=== PATIENT | male | born 1940 | race Caucasian/White ===

== ENCOUNTER 2020-08-16 23:34 | Inpatient (IN) | payer OTHER, SELFPAY ==
[~2020-08-16] VITALS: Ht 182.9 cm; Wt 118.8 kg
--- NOTE | 2020-08-16 23:40 | NUR ---
Patient to ER bed 5 to gown for evaluation. Side rails up.
--- NOTE | 2020-08-17 00:03 | NUR ---
Patient BIB by BLS/EMS. C/O medical clearance x today. Per reported patient found on the floor, a mattress on the floor, possible rolled over, (6 inches from ground level mattress ). A/O,X4, generalized weakness, bodyache, on fentanyl patch, Place patient on nurse monitoring.
--- NOTE | 2020-08-17 00:21 | NUR ---
X-ray at bedside.
--- NOTE | 2020-08-17 00:29 | NUR ---
ER at bedside examining patient.
--- NOTE | 2020-08-17 00:35 | NUR ---
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 Patient tolerated well.
[2020-08-17] MEDS ORDERED: BENA10TA73 PO (00:36)
--- NOTE | 2020-08-17 00:42 | NUR ---
spoke to daughter, Salena Moore, she can be reached at [phone] at any time.
[2020-08-17] MEDS ORDERED: BUDE10.26 INH (00:58)
[2020-08-17] MEDS ORDERED: SERT100T PO (00:58)
[2020-08-17] MEDS ORDERED: OXYC-133 PO ×2 (00:58)
[2020-08-17] MEDS ORDERED: POTA20TA83 PO (00:58)
[2020-08-17] MEDS ORDERED: SPIR25TA6 PO (00:58)
[2020-08-17] MEDS ORDERED: APIX5TAB PO (00:58)
[2020-08-17] MEDS ORDERED: FURO20TA4 PO (00:58)
[2020-08-17] MEDS ORDERED: POLY15DR31 EACH EYE (00:58)
[2020-08-17] MEDS ORDERED: PRO40 PO (00:58)
[2020-08-17] MEDS ORDERED: ACET325T PO (00:58)
[2020-08-17] MEDS ORDERED: FURO-150 PO (00:58)
[2020-08-17] MEDS ORDERED: POLY17PO4 PO (00:58)
[2020-08-17] MEDS ORDERED: LEVO100T9 PO (00:58)
[2020-08-17] MEDS ORDERED: ALBU8.5H8 INH (00:58)
[2020-08-17] MEDS ORDERED: LACT1CAP62 PO (00:58)
[2020-08-17] MEDS ORDERED: [UNRECOGNIZED DRUG - CODE] PO (00:58)
[2020-08-17] MEDS ORDERED: ROSU10TA2 PO (00:58)
[2020-08-17] MEDS ORDERED: HYD10 PO (00:58)
[2020-08-17] MEDS ORDERED: APIX5TAB4 PO (00:58)
[2020-08-17] MEDS ORDERED: FENT-71 TD (00:58)
[2020-08-17] MEDS ORDERED: ZINC220T4 PO (00:58)
[2020-08-17] MEDS ORDERED: CARB30DR4 OP (00:58)
[2020-08-17] MEDS ORDERED: FAMO20TA8 PO (00:58)
[2020-08-17] MEDS ORDERED: HYDR5TAB PO (00:58)
[2020-08-17] MEDS ORDERED: CHOL100024 PO (00:58)
[2020-08-17] MEDS ORDERED: DILT60TA3 PO (00:58)
[2020-08-17] MEDS ORDERED: TAMS0.4C96 PO (00:58)
[2020-08-17] MEDS ORDERED: ASCO500T20 PO (00:58)
--- NOTE | 2020-08-17 00:59 | NUR ---
Medication reconciliation completed with information provided by [facility]. Any prior medication reconciliation on file was reviewed and corrected.
[2020-08-17 01:10] LABS: BASOPHILS % (AUTO) 0.5 % (0.0-2.0); EOSINOPHILS # (AUTO) 0.1 K/uL (0.0-0.4); EOSINOPHILS % (AUTO) 0.7 % (0.0-4.0); HEMATOCRIT 37.2 % (36-54); HEMOGLOBIN 12.5 g/dL (14.0-18.0); LYMPHOCYTES # (AUTO) 2.7 K/uL (1.0-5.5); LYMPHOCYTES % (AUTO) 30.6 % (20.5-51.5); MEAN CORPUSCULAR HEMOGLOBIN 30 pg (27-31); MEAN CORPUSCULAR HGB CONC 34 % (32-36); MEAN CORPUSCULAR VOLUME 90 fL (79.0-98.0); MONOCYTES # (AUTO) 0.5 K/uL (0.0-1.0); MONOCYTES % (AUTO) 5.3 % (1.7-9.3); NEUTROPHILS # (AUTO) 5.5 K/uL (1.8-7.7); NEUTROPHILS % (AUTO) 62.9 % (40.0-70.0); PLATELET COUNT (AUTO) 154 K/uL (130-430); RED BLOOD CELL COUNT(AUTO) 4.15 MIL/uL (4.2-6.2); RED CELL DISTRIBUTION WIDTH 17.3 % (9.0-15.0); WHITE BLOOD COUNT (AUTO) 8.8 K/uL (4.8-10.8)
[2020-08-17 01:22] LABS: ANION GAP 12 (5-15); CALCIUM 7.9 mg/dL (8.4-11.0); CHLORIDE 94 mmol/L (98-107); GLUCOSE 116 mg/dL (70-99); POTASSIUM 3.9 mmol/L (3.5-5.1); SODIUM SERUM 128 mmol/L (136-145); UREA NITROGEN, BLOOD 39 mg/dL (8-21)
[2020-08-17 01:26] LABS: ALANINE AMINOTRANSFERASE 61 U/L (12-78); ASPARTATE AMINOTRANSFERASE 46 U/L (10-37); LIPASE 70 U/L (73-393); TOTAL BILIRUBIN 0.7 mg/dL (0.0-1.0)
[2020-08-17 01:29] LABS: INR 1.3 (0.80-1.20)
[2020-08-17] MEDS ORDERED: NACL 0.9% 1,000 ML IV ONE (03:45)
--- NOTE | 2020-08-17 04:35 | NUR ---
Swabbed Covid 19 and MRSA as protocol and sent to lab.
--- NOTE | 2020-08-17 05:15 | NUR ---
Patient will be admitted to care of Dr. Romero. Admitted to Tele unit. Will go to room 106A. Belongings list completed. Complete and up to date summary report printed. SBAR report to be given at bedside with opportunity for questions.
--- NOTE | 2020-08-17 05:25 | NUR ---
ADMIT NOTE Received pt from ER to the floor with a diagnosis of renal failure. Admission process initiated. patient oriented to pain management, safety and call light-teach back done.
--- NOTE | 2020-08-17 06:09 | NUR ---
Assessment, pictures Initial phys assessment done, wound pictures taken and applied dressing on open wound. Patient resting in comfortable position, call light w/ in reach and bed alarm/safety precautions in place.
[2020-08-17 06:18] VITALS: BP_SYST 99
--- NOTE | 2020-08-17 07:11 | NUR ---
CONSULT NEPHROLOGY RENAL FAILURE DR MENDOZA [phone] S/W BALTAZAR BAINS
[2020-08-17] MEDS ORDERED: ACETAMINOPHEN 325 MG TABLET PO PRN (07:30)
[2020-08-17] MEDS ORDERED: POLYETHYLENE GLYCOL 3350, 17 GM/ POWD.PACK PO PRN (07:30)
[2020-08-17] MEDS ORDERED: OXYCODONE/ACETAMINOPHEN *10*mg/325 mg TABLET PO PRN (07:30)
--- NOTE | 2020-08-17 07:30 | NUR ---
Opening Note Patient found in [facility], A/Ox3, unsure of date. NAD. Respirations even and unlabored. Peripheral IV to left wrist, saline locked. Bed in low and locked position, side rails up x3, call light within reach, bed alarm on.
[2020-08-17 07:59] VITALS: BP_SYST 103
--- NOTE | 2020-08-17 08:15 | NUR ---
Peripheral IV Removal Patient inadvertently removed PIV. Wrist covered with 2x2 and gauze.
[2020-08-17] MEDS: POTASSIUM CHLORIDE 20 MEQ TAB.PRT.SR PO SCH (08:17)
[2020-08-17] MEDS: SERTRALINE HCL 50 MG TABLET PO SCH (08:17)
[2020-08-17] MEDS: LEVOTHYROXINE SODIUM 0.1 MG TABLET PO SCH (08:17)
[2020-08-17] MEDS: TAMSULOSIN HCL 0.4 MG CAP PO SCH (08:18)
[2020-08-17] MEDS: FAMOTIDINE 20 MG TABLET PO SCH ×2 (08:18→20:38)
[2020-08-17] MEDS: DILTIAZEM HCL 60 MG TABLET PO SCH (08:19)
[2020-08-17] MEDS: PEG 400/HYPROMELLOSE/GLYCERIN 15 ML DROPS EACH EYE SCH ×4 (08:19→20:45)
[2020-08-17] MEDS: APIXABAN 2.5 MG TABLET PO SCH ×2 (08:20→20:41)
[2020-08-17] MEDS ORDERED: HYDROCORTISONE 10 MG TABLET (CORTEF) PO ONE (10:15)
--- NOTE | 2020-08-17 11:22 | NUR ---
Straight Cath for UA specimen Straight Catheter inserted for UA specimen. Urine is yellow/cloudy. Patient tolerated procedure well. UO: 150 ml
[2020-08-17 11:29] LABS: BILIRUBIN,URINE NEGATIVE (NEGATIVE); BLOOD, URINE 3+ (NEGATIVE); COLOR,URINE YELLOW (YELLOW); GLUCOSE,URINE NEGATIVE (NEGATIVE); KETONES,URINE NEGATIVE (NEGATIVE); LEUKOCYTE ESTERASE ,URINE 1+ (NEGATIVE); NITRITE, URINE NEGATIVE (NEGATIVE); PH,URINE 5.5 (5.0-8.0); PROTEIN URINE 2+ (NEGATIVE); UROBILINOGEN,URINE 0.2 (0.2-1.0)
--- NOTE | 2020-08-17 11:30 | NUR ---
Peripheral IV insertion Peripheral IV inserted to right AC, 20 g, saline locked. Covered with gauze.
[2020-08-17 11:32] LABS: CLARITY/URINE CLOUDY (CLEAR)
[2020-08-17 11:42] LABS: BACTERIA,URINE MANY /HPF (None Seen)
[2020-08-17 11:43] LABS: MUCUS,URINE 1+ /LPF (None Seen)
[2020-08-17 11:45] VITALS: BP_SYST 95
[2020-08-17] MEDS: LEVOFLOXACIN 500 MG/D5W 100 ML IV SCH (13:37)
--- NOTE | 2020-08-17 13:54 | NUR ---
CONSULT ID CALLED CONSULT WITH DR JAEL TAPIA AND ELIAS TYLER FAXED TO THE OFFICE
--- NOTE | 2020-08-17 14:14 | NUR ---
Nausea/Vomiting Patient actively vomiting, undigested food. MD Romero paged for antiemetic orders.
--- NOTE | 2020-08-17 14:15 | NUR ---
MD Romero Orders TORB from MD Romero for 4 mg Zofran IV push q6hr as needed for nausea/vomiting.
--- NOTE | 2020-08-17 15:22 | NUR ---
Wound Care Assessment Luis Armando RICHARDSRTylor at bedside assessing patient. Patient agitated and resistant to assessment. Patient redirected
--- NOTE | 2020-08-17 15:22 | NUR ---
WOUND EVALUATION: Wound Consult received from Dr. Romero. Thank you, Dr. Romero, for the consult. Patient received in a [employer] Bed with an Atmos-Air 9000 mattress, awake, alert, confused, agitated, using fowl words, resisting care. Patient is unable to turn in bed independently. Greg Score is a 14. Past Medical History: CHF, COPD, Atrial-Fibrillation, B-Cell Lymphoma, resection of Pituitary Adenoma, Gallbladder surgery a few months ago, recurrent UTIs. Recent Labs: WBC 8.8, RBC 4.15, hemoglobin 12.5, hematocrit 37.2, sodium 128, chloride 94, BUN 39, creatinine 5.80, glucose 116, calcium 7.9, AST 46, albumin 3.0, PT 13.0, INR 1.3, PTT 41.1. Microbiology: Blood culture results x2 in progress; MRSA screen results in progress; Urine culture results in progress. Intrinsic factors that delay wound healing: CHF, COPD, Atrial-Fibrillation, Hypoalbuminemia. Extrinsic factors that delay wound healing: Immobility. Wound Assessment: 1. Abdomen, Superior to Umbilical area: Chronic wound, present on admission. Site has 90% red discoloration, 10% white discoloration. No odor, no drainage. Dry, stable. Site measures 1.7 cm x 1.7 cm. Recommend: Cleanse site with mild soap and water. Pat dry. Apply Calmoseptine cream to involved area. Perform site care twice daily. 2. Right Lateral Abdominal Fold: Intertrigo, present on admission. Site has a horizontal linear area of erythema. No odor, scant serous drainage. Site measures 5.5 cm x 3.0 cm. Recommend: Cleanse site with mild soap and water. Pat dry. Apply Calmoseptine cream to involved area. Perform site care qid prn. 3. Left Posterior Heel: sDTI, present on admission. Site has a closed bulla with purple discoloration. Surrounding tissue has blanchable red erythema. No odor, no drainage. Site measures 4.3 cm x 4.2 cm. Recommend: Cover site with foam dressing for protection. Place foot in Heel Lift boot. Check Heel Lift boot during hourly rounds to ensure that heel is freely floating within boot. 4. Left Medial First Metatarsal Head: Chronic wound, present on admission. Site has 100% red colored tissue. No odor, no drainage. Dry, stable. Periwound intact. Wound measures 1.5 cm x 1.5 cm. Recommend: Cleanse wound with normal saline. Apply sure prep to periwound. Cover with foam dressing. Perform wound care daily, and as needed for dressing soiling or dislodgment. 5. Left Medial Hallux: Wound, present on admission. Site has 90% white tissue, 10% red tissue. No odor, scant serous drainage. Periwound intact. Wound measures 1.2 cm x 1.2 cm. Recommend: Cleanse wound with normal saline. Apply sure prep to periwound. Apply hydrogel to wound bed. Cover with foam dressing. Perform wound care daily, and as needed for dressing soiling or dislodgment. 6. Right Medial Hallux: Chronic wound, present on admission. Site has 100% red colored tissue. No odor, no drainage. Dry, stable. Periwound intact. Wound measures 1.0 cm x 1.0 cm. Recommend: Cleanse wound with normal saline. Apply sure prep to periwound. Cover with foam dressing. Perform wound care daily, and as needed for dressing soiling or dislodgment. 7. Left Anterior Knee: Abrasion, present on admission. Abrasion is dry with erythema. No odor, no drainage. Recommend: No dressing needed. Continue to monitor site every shift. 8. Left Upper Extremity: Multiple areas of ecchymosis, present on admission. 9. Right Upper Extremity: Multiple areas of ecchymosis, present on admission. Recommend: No dressings needed. Continue to monitor extremities every shift. Also recommend: Reposition patient every 2 hours with pillow support and off-load pressure areas with pillows for pressure re-distribution. Offload, elevate and float bilateral heels with pillows. Perform skin care and monitor skin integrity Q shift. Use Calmoseptine cream on buttocks and other moisture susceptible areas QID and as needed for soiling. Place patient on a low air-loss mattress. Addendum: 08/17/20 at 1712 by Luis Armando Monge RN Addendum: 10. Sacral/Buttocks/Gluteal Cleft areas: Blanchable red erythema with tiny white lesion with dark discolored center, present on admission. No odor, no drainage. Recommend: Cleanse site with mild soap and water. Apply Calmoseptine to site. Cover with Sacral foam dressing. Perform site care daily, and as needed for dressing soiling or dislodgment.
[2020-08-17 15:37] VITALS: BP_SYST 93
--- NOTE | 2020-08-17 17:15 | NUR ---
Wound Care Foam pad placed to left heel. Left heel placed in heel lift boot.
[2020-08-17] MEDS: OXYCODONE/ACETAMINOPHEN *10*mg/325 mg TABLET PO PRN (17:36)
[2020-08-17] MEDS: ONDANSETRON HCL 4 MG/2 ML VIAL IM PRN (18:29)
--- NOTE | 2020-08-17 18:29 | NUR ---
Closing Note Patient in bed, reporting nausea, provided patient with 4 mg zofran IV push. Peripheral IV infusing at 60 ml/hr to right AC. Bed in low and locked position, side rails up x3, call light within reach, bed alarm on. Will endorse care to NOC RN.
--- NOTE | 2020-08-17 19:25 | NUR ---
Opening Note Received patient resting in bed, awake, AOx3, no distress and nonlabored breathing on room air and presently denies pain and reports no nausea. IVF infusing via IV to RAC. He is wearing gown refuses to be covered by sheets or blankets. Bed is locked in lowest position, side rails up 3x and bed alarm on. He was instructed on use of call light and verbalized understanding. Reviewed plan of care and updated board.
[2020-08-17 20:00] VITALS: BP_SYST 103
[2020-08-17] MEDS: ATORVASTATIN 20 MG TABLET PO SCH (20:38)
[2020-08-17] MEDS: HYDROCORTISONE 10 MG TABLET (CORTEF) PO SCH (20:39)
--- NOTE | 2020-08-17 20:50 | NUR ---
meds Due meds given. Patient took pills/tablets whole, he wanted the meds in his pudding cup and he ate the entire pudding.
--- NOTE | 2020-08-17 22:10 | NUR ---
awake, leads off Patient is awake and pulling off gown and leads. He was assisted with reposition and reports he didn't want pillow on side. He was educated on benefits/risks of reposition and he replied "I'm not going to get a bed sore". He eventually did agree to turn to right side and I placed pillow.
[2020-08-18 00:20] VITALS: BP_SYST 94
--- NOTE | 2020-08-18 00:22 | NUR ---
Rounds, V/S Patient resting w/eyes closed and upset that he was awakened. I explained that at the hospital we check V/S and provide patient care 24 hours. V/S taken and hypotensive 94/61, HR 68. He was repositioned and cooperated. Will continue to monitor.
--- NOTE | 2020-08-18 02:15 | NUR ---
Rounds, reposition Patient resting w/eyes closed, no distress. He was easily aroused and repositioned. IVF infusing well and patient tolerating. Safety precautions maintained.
[2020-08-18] MEDS: MENTHOL/ZINC OXIDE 113 GM OINT. TP PRN ×2 (04:29→20:19)
[2020-08-18 04:30] VITALS: BP_SYST 95
--- NOTE | 2020-08-18 04:40 | NUR ---
Wound care Wound care done; patient tolerated; details noted in [facility] assessment charting. At 0400 patient was informed of procedure to be done (wound care) and he agreed; He was offered pain medication and he refused.
--- NOTE | 2020-08-18 05:05 | NUR ---
Low air loss mattress [facility] nurses. Patient tolerated.
--- NOTE | 2020-08-18 05:18 | NUR ---
Paged Keyshawn Alexander s/w Safia
--- NOTE | 2020-08-18 05:19 | NUR ---
Critical Lab Gina OSBORN, received critical lab result from Sunita and forward message to me. Preliminary result is Positive BC G+ cocci clusters, awaiting call back from Dr. Alin De Jesus.
--- NOTE | 2020-08-18 05:37 | NUR ---
Dr. Alin De Jesus was informed of + BC results; provided orders and TORB new orders.
[2020-08-18] MEDS: PANTOPRAZOLE SODIUM 40 MG TAB PO SCH (06:45)
[2020-08-18] MEDS: LEVOTHYROXINE SODIUM 0.1 MG TABLET PO SCH (06:45)
--- NOTE | 2020-08-18 06:45 | NUR ---
Closing note Patient was given due medication and took tablets whole w/pudding. He is resting in comfortable position, no s/sx of distress and non labored breathing. Patient is resting on TARIQ mattress, IV to RAC is SL and safety precautions maintained. Needs met throughout shift, will endorse care to day shift nurse.
--- NOTE | 2020-08-18 07:25 | NUR ---
Nutrition Update Greg Scale 14 noted. Pt admitted for Renal failure Diet: Renal standard BMI: 35 kg/m2 RD to follow per nutrition care standards.
--- NOTE | 2020-08-18 07:30 | NUR ---
Opening Note Report received from NOC RN. Patient found in [facility], A/Ox3 but confused. Patient naked and has taken off his clothes, primary RN placed patient back in gown. Patient has no complaints at this time. Peripheral IV flushed, patent, saline locked. Denies chest pain/shortness of breath. Bed in low and locked position, side rails up x3, call light within reach, bed alarm on. Bathroom needs addressed.
[2020-08-18] MEDS: HYDROCORTISONE 10 MG TABLET (CORTEF) PO SCH ×2 (08:50→20:09)
[2020-08-18] MEDS: TAMSULOSIN HCL 0.4 MG CAP PO SCH (08:50)
[2020-08-18] MEDS: FAMOTIDINE 20 MG TABLET PO SCH ×2 (08:51→20:09)
[2020-08-18] MEDS: SERTRALINE HCL 50 MG TABLET PO SCH (08:51)
[2020-08-18] MEDS: POTASSIUM CHLORIDE 20 MEQ TAB.PRT.SR PO SCH (08:51)
[2020-08-18] MEDS: DILTIAZEM HCL 60 MG TABLET PO SCH (08:52)
[2020-08-18] MEDS: LINEZOLID 300 ML IV SCH ×2 (08:52→20:08)
[2020-08-18] MEDS: APIXABAN 2.5 MG TABLET PO SCH ×2 (08:53→20:10)
[2020-08-18] MEDS: PEG 400/HYPROMELLOSE/GLYCERIN 15 ML DROPS EACH EYE SCH ×4 (09:00→20:19)
--- NOTE | 2020-08-18 09:00 | NUR ---
Incontinent to Urine Patient incontinent to urine, patient's linens changed and patient cleaned.
[2020-08-18 11:04] LABS: BASOPHILS # (AUTO) 0.1 K/uL (0.0-0.2); EOSINOPHILS % (AUTO) 0.2 % (0.0-4.0); HEMATOCRIT 34.6 % (36-54); HEMOGLOBIN 11.6 g/dL (14.0-18.0); LYMPHOCYTES # (AUTO) 1.6 K/uL (1.0-5.5); LYMPHOCYTES % (AUTO) 29.4 % (20.5-51.5); MEAN CORPUSCULAR HEMOGLOBIN 30 pg (27-31); MEAN CORPUSCULAR HGB CONC 33 % (32-36); MEAN CORPUSCULAR VOLUME 90 fL (79.0-98.0); MONOCYTES # (AUTO) 0.2 K/uL (0.0-1.0); MONOCYTES % (AUTO) 3.7 % (1.7-9.3); NEUTROPHILS # (AUTO) 3.7 K/uL (1.8-7.7); NEUTROPHILS % (AUTO) 65.7 % (40.0-70.0); PLATELET COUNT (AUTO) 114 K/uL (130-430); RED BLOOD CELL COUNT(AUTO) 3.83 MIL/uL (4.2-6.2); RED CELL DISTRIBUTION WIDTH 17.1 % (9.0-15.0); WHITE BLOOD COUNT (AUTO) 5.6 K/uL (4.8-10.8)
[2020-08-18 11:14] LABS: ANION GAP 11 (5-15); CALCIUM 7.6 mg/dL (8.4-11.0); CHLORIDE 98 mmol/L (98-107); CREATININE 6.22 mg/dL (0.55-1.30); GLUCOSE 106 mg/dL (70-99); POTASSIUM 5.5 mmol/L (3.5-5.1); SODIUM SERUM 134 mmol/L (136-145); UREA NITROGEN, BLOOD 45 mg/dL (8-21)
[2020-08-18 11:19] LABS: ALANINE AMINOTRANSFERASE 49 U/L (12-78); ALBUMIN 3.1 g/dL (3.4-4.8); ASPARTATE AMINOTRANSFERASE 36 U/L (10-37); TOTAL BILIRUBIN 0.6 mg/dL (0.0-1.0)
[2020-08-18] MEDS: LEVOFLOXACIN 500 MG/D5W 100 ML IV SCH (11:40)
--- NOTE | 2020-08-18 12:00 | NUR ---
Lunch Patient eating lunch, denies wanting assistance. Patient able to eat on his own.
--- NOTE | 2020-08-18 13:52 | NUR ---
Dietitian Recommendations *Recommend: add Nepro BID, Giovanni BID. *Continue Renal standard diet as ordered. *Consider nephrovite. *Encourage pt to increase PO intake. Please see Nutritional Assessment for details. AARON, RD
--- NOTE | 2020-08-18 15:30 | NUR ---
Nausea Patient reports severe nausea. 4 mg zofran IV push will be provided.
[2020-08-18 16:00] VITALS: BP_SYST 105
[2020-08-18] MEDS: ONDANSETRON HCL 4 MG/2 ML VIAL IM PRN (16:28)
--- NOTE | 2020-08-18 16:32 | NUR ---
Daughter, Salena Family Communication Primary RN contacted by patient's daughter, Salena. Patient's daughter requesting to speak to MD Romero about patient's condition. Per Salena, she is the patient's power of anti tank missileman and would like to be involved in the decisions regarding the patient's care. Will inform MD Romero of this. Salena, Cellphone number: [phone]
--- NOTE | 2020-08-18 16:47 | NUR ---
CM Note: Discussed initial dcp with both dtrs, stated the pt has been bed bound x 4 months, has bone on bone on his feet.The pt has been in and out hospital up to 12 different facilities including snf. The pt has [facility] set up but have not start the service yet. Natalya stated she is POA cell# [phone], but not document on file. Salena said the confusion is not normal mental status for the pt. Stated the pt has full assistance accommodation at [facility] . Please call [facility] to eval acceptance upon discharge. If [facility] is unable to accept the pt back, dtrs will discuss snf placement.
[2020-08-18] MEDS ORDERED: SODIUM POLYSTYRENE SULFONATE 15 GM/60 ML UDBTL PO ONE (17:00)
[2020-08-18] MEDS ORDERED: SODIUM POLYSTYRENE SULFONATE 15 GM/60 ML UDBTL ONE (17:49)
--- NOTE | 2020-08-18 18:43 | NUR ---
Closing Note Patient in bed, A/Ox2 to self and place. NAD. Denies chest pain/SOB. Patient watching television and working on crossword puzzle. Peripheral IV saline locked. Bed in low and locked position, side rails up x3, call light within reach, bed alarm on. Bathroom needs addressed. Will endorse care to NOC RN.
--- NOTE | 2020-08-18 18:43 | NUR ---
Dinner Patient reports no appetite. Primary RN able to feed patient 10 bites of chicken.
--- NOTE | 2020-08-18 19:25 | NUR ---
Opening Note Received patient resting on TARIQ mattress, awake, AOx3, and watching t.v. No distress and nonlabored breathing on room air and presently denies pain and reports nausea is better. IV is SL to RAC. Bed is locked in lowest position, side rails up 3x and bed alarm on. He was instructed on use of call light and verbalized understanding. Reviewed plan of care and updated board.
--- NOTE | 2020-08-18 19:48 | NUR ---
Dr. Alin De Jesus rounds Dr. Alin De Jesus is at bedside to see/eval.
[2020-08-18 20:00] VITALS: BP_SYST 103
[2020-08-18] MEDS: ATORVASTATIN 20 MG TABLET PO SCH (20:09)
--- NOTE | 2020-08-18 20:27 | NUR ---
Meds, antibiotic Due meds given. Patient took PO meds with pudding; he said it is easier to swallow than with water. Zyvox antibiotic infusing and patient tolerating; reviewed side effect and he only replied "yeah, will see".
--- NOTE | 2020-08-19 00:25 | NUR ---
V/S rounds Patient awake, VSS, he denies pain, repositioned for comfort.
[2020-08-19 00:30] VITALS: BP_SYST 137
--- NOTE | 2020-08-19 02:20 | NUR ---
Rounds, reposition Patient resting w/eyes closed, no distress. He was easily aroused and repositioned.
--- NOTE | 2020-08-19 04:00 | NUR ---
sleeping resting in comfortable position, non labored breathing, safety precautions in place
--- NOTE | 2020-08-19 05:30 | NUR ---
wound care wound care done, detailed in [facility] charting. Patient tolerated
--- NOTE | 2020-08-19 06:30 | NUR ---
daughter Salena incoming call from daughter, wants to know how father is, I answered her questions
[2020-08-19] MEDS: LEVOTHYROXINE SODIUM 0.1 MG TABLET PO SCH (06:36)
[2020-08-19] MEDS: PANTOPRAZOLE SODIUM 40 MG TAB PO SCH (06:36)
[2020-08-19 06:42] LABS: BASOPHILS % (AUTO) 0.8 % (0.0-2.0); EOSINOPHILS % (AUTO) 0.1 % (0.0-4.0); HEMATOCRIT 35.1 % (36-54); HEMOGLOBIN 11.7 g/dL (14.0-18.0); LYMPHOCYTES # (AUTO) 1.7 K/uL (1.0-5.5); LYMPHOCYTES % (AUTO) 28.7 % (20.5-51.5); MEAN CORPUSCULAR HEMOGLOBIN 30 pg (27-31); MEAN CORPUSCULAR HGB CONC 33 % (32-36); MEAN CORPUSCULAR VOLUME 90 fL (79.0-98.0); MONOCYTES # (AUTO) 0.3 K/uL (0.0-1.0); MONOCYTES % (AUTO) 4.4 % (1.7-9.3); PLATELET COUNT (AUTO) 117 K/uL (130-430); RED BLOOD CELL COUNT(AUTO) 3.89 MIL/uL (4.2-6.2); RED CELL DISTRIBUTION WIDTH 16.9 % (9.0-15.0)
--- NOTE | 2020-08-19 06:45 | NUR ---
Closing note Patient was given due medication and took tablets whole w/pudding. He is resting in comfortable position, no s/sx of distress and non labored breathing. Patient is resting on TARIQ mattress, IV to RAC is SL and safety precautions maintained. Had BM and was provided w/ jarrell-care and clean pad linens, Needs met throughout shift, will endorse care to day shift nurse.
--- NOTE | 2020-08-19 07:05 | NUR ---
Opening Note Patient report received via SBAR from [facility] IRENA
[2020-08-19 07:14] LABS: ALANINE AMINOTRANSFERASE 41 U/L (12-78); ALBUMIN 3.1 g/dL (3.4-4.8); ANION GAP 13 (5-15); ASPARTATE AMINOTRANSFERASE 26 U/L (10-37); CALCIUM 7.8 mg/dL (8.4-11.0); CHLORIDE 97 mmol/L (98-107); CREATININE 6.03 mg/dL (0.55-1.30); GLUCOSE 97 mg/dL (70-99); POTASSIUM 4.8 mmol/L (3.5-5.1); SODIUM SERUM 134 mmol/L (136-145); TOTAL BILIRUBIN 0.6 mg/dL (0.0-1.0); UREA NITROGEN, BLOOD 48 mg/dL (8-21)
[2020-08-19 08:00] VITALS: BP_SYST 117
[2020-08-19] MEDS: FAMOTIDINE 20 MG TABLET PO SCH ×2 (09:10→21:34)
[2020-08-19] MEDS: DILTIAZEM HCL 60 MG TABLET PO SCH (09:11)
[2020-08-19] MEDS: SERTRALINE HCL 50 MG TABLET PO SCH (09:12)
[2020-08-19] MEDS: HYDROCORTISONE 10 MG TABLET (CORTEF) PO SCH ×2 (09:14→21:29)
[2020-08-19] MEDS: APIXABAN 2.5 MG TABLET PO SCH ×2 (09:15→21:34)
[2020-08-19] MEDS: PEG 400/HYPROMELLOSE/GLYCERIN 15 ML DROPS EACH EYE SCH ×4 (09:16→21:28)
[2020-08-19] MEDS: TAMSULOSIN HCL 0.4 MG CAP PO SCH (09:16)
[2020-08-19] MEDS: LINEZOLID 300 ML IV SCH ×2 (09:17→21:34)
--- NOTE | 2020-08-19 10:35 | NUR ---
ROUND Dr. Romero in to see patient, physician entered orders
[2020-08-19] MEDS: LEVOFLOXACIN 500 MG/D5W 100 ML IV SCH (10:57)
--- NOTE | 2020-08-19 12:05 | NUR ---
Nursing Note Patient was repositioned, patient given PO meds and antibiotics. Patient educated about indication for medication, patient verbalized understanding
[2020-08-19 12:12] VITALS: BP_SYST 117
--- NOTE | 2020-08-19 12:50 | NUR ---
ROUND Dr. Padron in to see patient. Physician spoke with patient and family, no new orders
--- NOTE | 2020-08-19 13:20 | NUR ---
MD CARIDAD Romero informed about family's decision to hold off on hemodialysis, no new orders
--- NOTE | 2020-08-19 14:00 | NUR ---
Nursing Note Patient educated about dietary restrictions due to current diagnosis, patient states he doesn't want to eat the foods that are a part of the current diet. Patient has refused breakfast and lunch
[2020-08-19 16:58] VITALS: BP_SYST 122
--- NOTE | 2020-08-19 18:00 | NUR ---
Nursing Note Patient encouraged to eat dinner, patient tried different food choices but then choose not to continue eating
--- NOTE | 2020-08-19 19:20 | NUR ---
CLOSING NOTE Patient report given to nightshift RN via SBAR
--- NOTE | 2020-08-19 19:30 | NUR ---
OPENING NOTE RECEIVED PATIENT AWAKE IN BED WATCHING TV. AOX3. RESPIRATIONS EVEN AND UNLABORED ON ROOM AIR. IV SITE PATENT AND INTACT WITH NO SIGNS OF INFILTRATION NOTED. SAFETY MEASURES IN PLACE, BED LOCKED IN LOW POSITION, WITH CALL LIGHT IN REACH. WILL CONTINUE TO MONITOR.
--- NOTE | 2020-08-19 21:00 | NUR ---
MEDICATION PASS PATIENT TOLERATED MEDICATIONS WHOLE MIXED IN PUDDING. ALL CARE NEEDS MET AT THIS TIME.
[2020-08-19] MEDS: ATORVASTATIN 20 MG TABLET PO SCH (21:34)
[2020-08-20] VITALS: BP_SYST 134
--- NOTE | 2020-08-20 02:00 | NUR ---
RN ROUNDS PATIENT ASLEEP WITH NO SIGNS OF DISTRESS NOTED. WILL CONTINUE TO MONITOR.
--- NOTE | 2020-08-20 04:45 | NUR ---
WOUND CARE PATIENT TOLERATED ALL WOUND CARE ORDERED. NO COMPLAINTS AT THIS TIME.
[2020-08-20] MEDS: PANTOPRAZOLE SODIUM 40 MG TAB PO SCH (06:01)
[2020-08-20] MEDS: LEVOTHYROXINE SODIUM 0.1 MG TABLET PO SCH (06:01)
--- NOTE | 2020-08-20 06:15 | NUR ---
CLOSING NOTES PATIENT AWAKE IN BED. TOLERATED MEDICATIONS ORDERED. IV SITE REMAINS PATENT AND INTACT, FLUSHING WELL. REPOSITION PATIENT. HEELS FLOATING. SAFETY MEASURES IN PLACE. PATIENT STABLE. ALL CARE NEEDS MET THROUGHOUT SHIFT. WILL CONTINUE TO MONITOR UNTIL ENDORSED TO AM NURSE.
--- NOTE | 2020-08-20 08:00 | NUR ---
initial notes rec patient asleep but arousable to stimuli. resp easy and unlabored. no osb noted. bed to the lowest position and side rail up and locked. call light within reached. turned repositioned for comfort.
[2020-08-20 08:01] VITALS: BP_SYST 102
[2020-08-20] MEDS: DILTIAZEM HCL 60 MG TABLET PO SCH (09:00)
[2020-08-20] MEDS: FAMOTIDINE 20 MG TABLET PO SCH ×2 (09:00→20:30)
[2020-08-20] MEDS: TAMSULOSIN HCL 0.4 MG CAP PO SCH (09:05)
[2020-08-20] MEDS: LINEZOLID 300 ML IV SCH (09:05)
[2020-08-20] MEDS: HYDROCORTISONE 10 MG TABLET (CORTEF) PO SCH ×2 (09:05→20:30)
[2020-08-20] MEDS: SERTRALINE HCL 50 MG TABLET PO SCH (09:05)
[2020-08-20] MEDS: APIXABAN 2.5 MG TABLET PO SCH ×2 (09:06→20:31)
[2020-08-20] MEDS: PEG 400/HYPROMELLOSE/GLYCERIN 15 ML DROPS EACH EYE SCH ×4 (09:27→20:34)
--- NOTE | 2020-08-20 10:00 | NUR ---
rounds seen by dr maldonado at bedside.
--- NOTE | 2020-08-20 12:00 | NUR ---
rounds assited for lunch but refused to eat. call light within reached.
[2020-08-20 12:15] VITALS: BP_SYST 100
--- NOTE | 2020-08-20 12:28 | NUR ---
DISCHARGE PLANNING Spoke with Dr De Jesus & Dr Romero in [facility], plan for 1 more week of IV abx. Per Dr Neal Dorado x1wk. Called & spoke with dtmicheline Hoang, ph [phone], & informed. Also informed of f/u with Dr West. [facility] has spoken with Dr Padron already & is aware of the plan for f/u in his office in 2weeks. Gave Natalya Padron's office #, states she will call to make the appt. Informed that Dr Romero recommends [facility] or [facility] but has choice of SNF's. States she is in store right now, will look up SNF's then call me back with decision, gave her my direct extension. Addendum: 08/20/20 at 1424 by Esther Murphy RN Received call back from dtmicheline Hoang, [facility] wants to speak with Dr Romero first. Would prefer pt go back to [facility], wants to know why needs IV abx & cannot get Po abx. Also if needs SNF would prefer SNF that PCP goes to possibly [facility], where pt has been to in past. Wants to speak with Dr Romero before decides. Called & informed Dr Romero, [facility] will call dtr, gave him Natalya's cell #. Called & spoke with Carmelita @ [facility], ph [phone], states will take pt back if not going to need IV abx. Pt was max assist @ [facility]. States would need Physicians report filled out & signed by MD before can take pt back. Will also need Covid neg test results, informed Rapid neg & states that's ok. Will fax Physicians Report to office. Addendum: 08/20/20 at 1502 by Esther Murphy RN Received call back from Natalya, also put sister on the phone. Has not received call from Dr Romero, but are agreeable with SNF for short term IV abx. Do not want [facility] or [facility], want pt to go to [facility] or [facility]. Updated lakeisha Meng, who faxed referral to [facility] & [facility]. Addendum: 08/20/20 at 1601 by Esther Murphy RN Per Yusra [facility] denied pt, [facility] reviewing. I called & spoke with dtr Natalya, & states ok to try [facility] SNF if [facility] denies. Pt has been to [facility] in past. [facility] still has not spoken with Dr Romero.
--- NOTE | 2020-08-20 12:43 | NUR ---
Discharge Planning: DCP faxed pt referral to [facility] D[facility] to follow up. Addendum: 08/20/20 at 1656 by Yusra LUEVANO DCP followed up with [facility] ([phone]) pt accepted to [facility] ([phone]) pt accepted to [facility] Family wants [facility] ([phone]) per Shy declined patient has been in and out of SNFs or [facility] ([phone]) declined rooms are going to residents they are priority. DCP faxed to [facility] ([phone]) DCP to follow up.
[2020-08-20] MEDS: LEVOFLOXACIN 500 MG/D5W 100 ML IV SCH (13:39)
--- NOTE | 2020-08-20 16:00 | NUR ---
rounds pt was turned repositoned for comfort. keep patient dry and clean
[2020-08-20 16:31] VITALS: BP_SYST 113
--- NOTE | 2020-08-20 19:00 | NUR ---
closing notes pt continue to sleep at intervals. resp easy and unlabored. bed to the lowest position and side rails up and locked. call light within reached. bed alarm is on. denies pain.
--- NOTE | 2020-08-20 19:30 | NUR ---
OPENING NOTE RECEIVED PATIENT ASLEEP IN BED WITH NO SIGNS OF DISTRESS NOTED. RESPIRATIONS EVEN AND UNLABORED ON ROOM AIR. IV SITE PATENT AND INTACT FLUSHING WELL WITH NO SIGNS OF INFILTRATION NOTED. SAFETY MEASURES IN PLACE, BED LOCKED IN LOW POSITION, WITH CALL LIGHT IN REACH. WILL CONTINUE TO MONITOR.
[2020-08-20 20:00] VITALS: BP_SYST 114
[2020-08-20] MEDS: ATORVASTATIN 20 MG TABLET PO SCH (20:30)
--- NOTE | 2020-08-20 22:00 | NUR ---
RN ROUNDS PATIENT SLEEPING, NO DISTRESS NOTED. WILL MONITOR.
--- NOTE | 2020-08-21 02:00 | NUR ---
RN ROUNDS INCONTINENCE CARE PROVIDED, REPOSITIONED PATIENT. HEELS REMAIN FLOATING WITH BOOT IN PLACE TO LEFT FOOT.
[2020-08-21 04:00] VITALS: BP_SYST 110
[2020-08-21] MEDS: PANTOPRAZOLE SODIUM 40 MG TAB PO SCH (05:55)
[2020-08-21] MEDS: LEVOTHYROXINE SODIUM 0.1 MG TABLET PO SCH (05:55)
--- NOTE | 2020-08-21 06:00 | NUR ---
CLOSING NOTE WOUND CARE COMPLETED ORDERED. PATIENT TOLERATED. MEDICATIONS TOLERATED WHOLE MIXED IN PUDDING. REPOSITIONED PATIENT, LINENS AND GOWN CHANGED. IV SITE REMAINS PATENT AND FLUSHING WELL. PATIENT STABLE. ALL CARE NEEDS MET THROUGHOUT SHIFT. BED LOCKED IN LOW POSITION. CALL LIGHT IN REACH. WILL CONTINUE TO MONITOR UNTIL ENDORSED CARE TO AM NURSE.
[2020-08-21 08:00] VITALS: BP_SYST 104
--- NOTE | 2020-08-21 08:00 | NUR ---
OPening note Received patient resting with eyes closed. Arose with verbal stimuli. Oriented times 3-4, Saline lock right A/C #20 flushes well. Breakfast received and set up. Bed in low, call light in reach side rails up for safety will continue to monitor.
[2020-08-21] MEDS: DILTIAZEM HCL 60 MG TABLET PO SCH ×2 (09:00→09:12)
[2020-08-21] MEDS: APIXABAN 2.5 MG TABLET PO SCH ×2 (09:08→21:00)
[2020-08-21] MEDS: SERTRALINE HCL 50 MG TABLET PO SCH (09:13)
[2020-08-21] MEDS: TAMSULOSIN HCL 0.4 MG CAP PO SCH (09:13)
[2020-08-21] MEDS: FAMOTIDINE 20 MG TABLET PO SCH ×2 (09:13→21:00)
[2020-08-21] MEDS: PEG 400/HYPROMELLOSE/GLYCERIN 15 ML DROPS EACH EYE SCH ×3 (09:14→21:00)
[2020-08-21] MEDS: HYDROCORTISONE 10 MG TABLET (CORTEF) PO SCH ×2 (09:14→21:00)
--- NOTE | 2020-08-21 09:38 | NUR ---
Paged Dr. Rmoero for discharge orders.
--- NOTE | 2020-08-21 09:45 | NUR ---
Discharge Planning: DCP followed up with [facility] ([phone]) pat will go to [facility], DCP made nurse aware, and a DC order was needed. Addendum: 08/21/20 at 1335 by Yusra Azul DP DCP received a call from nurse station patient will be having a hospice evaluation.
--- NOTE | 2020-08-21 10:48 | NUR ---
PAGED PAGED BRENNEN OBRIEN AT [phone] SPOKE WITH ROCÍO.
[2020-08-21] MEDS: LEVOFLOXACIN 500 MG/D5W 100 ML IV SCH (11:33)
[2020-08-21 13:18] VITALS: BP_SYST 102
--- NOTE | 2020-08-21 14:00 | NUR ---
Denial Management Representative: Call Inocencia raphael Dr. orders FAILURE ANALYSIS TECHNICIAN called Inocencia Dickens asking about DrsKamille orders. FAILURE ANALYSIS TECHNICIAN thought Daughter wanted SNF. Dr. Romero wrote a Hospice order. Maninder stated he just spoke to daughter who said she thought pt. was going to a SNF. She wants to speak to pts. PCP. Daughter also told Inocencia Dickens she may want another week of antibiotics or another round of dialysis. They may know more once Dr. Santamaria rounds later today. He added as per Dr. Caraballo, pt. will be here until Sunday. FAILURE ANALYSIS TECHNICIAN will remain available for follow up.
--- NOTE | 2020-08-21 18:00 | NUR ---
Daughter called was on facetime with father. Patient does not wish to go to hospice.
--- NOTE | 2020-08-21 18:20 | NUR ---
Informed charge that patient declined hospice per the daughter. She informed me to talk to patient and family to see if bed is still available and if he wants to be sent tonight. Called daughter to find out if bed still available. She will call back
[2020-08-21 18:21] VITALS: BP_SYST 114
--- NOTE | 2020-08-21 18:37 | NUR ---
Daughter called and family decided that patient should be transferred in morning.
--- NOTE | 2020-08-21 18:38 | NUR ---
Closing note Patient informed that his family thought that he should be transferred in morning. Patient did not want his evening meal. Patient on room air breathing even and unlabored no sign of distress. Bed in low, call light in reach side rails up for safety. Will endorse to next shift.
--- NOTE | 2020-08-21 19:30 | NUR ---
INITIAL NOTES: RECEIVED REPORT FROM JACEK OSBORN. PATIENT IS IN BED, RESTING. NO ACUTE DISTRESS. EVEN, NONLABORED BREATHING ON ROOM AIR. BED IS LOCKED AT LOWEST POSITION. SIDE RAILS UP. BED ALARM ON. CALL LIGHT IS WITH PATIENT. CONTACT, SAFETY, AND FALL PRECAUTIONS IN PLACE. WILL CONTINUE WITH PLAN OF CARE. Addendum: 08/21/20 at 2132 by Gina Rooney RN IV SITE IS PATENT, INTACT, AND SALINE LOCKED.
[2020-08-21 20:00] VITALS: BP_SYST 106
[2020-08-21] MEDS: ATORVASTATIN 20 MG TABLET PO SCH (21:00)
--- NOTE | 2020-08-21 21:00 | NUR ---
PATIENT REFUSED MEDICATIONS: PATIENT REFUSED MEDICATIONS AFTER BEING EDUCATED ON INDICATIONS OF ELIQUIS AND THE IMPORTANCE OF IT FOR PATIENT'S HX OF AFIB TO PREVENT BLOOD CLOTS. NOTIFIED CHARGE NURSE. CHARGE NURSE ALSO NOTIFIED PATIENT ON INDICATIONS OF MEDICATIONS. PATIENT STILL REFUSED ALL NIGHT TIME MEDICATIONS. PATIENT REQUESTED 7UP.
--- NOTE | 2020-08-21 21:30 | NUR ---
PATIENT REFUSED MEDICATIONS: RETURNED TO PATIENTS ROOM WITH 7UP HE REQUESTED. PATIENT NOW REFUSED 7UP. THIS RN AND SILICA DRY PRESS HELPER EDUCATED PATIENT AGAIN ON IMPORTANCE AND INDICATIONS OF TAKING HIS NIGHT TIME MEDICATIONS ESPECIALLY ELIQUIS TO PREVENT BLOOD CLOTS. PATIENT SAID, "IF I GET WOKEN UP ONE MORE TIME, I WILL BE AND ANGRY OLD MAN. I HAVE THE RIGHT TO REFUSE MY MEDICATION." PAGED DR. ZAVALA TO NOTIFY MD ABOUT PATIENT REFUSAL OF MEDICATIONS.
--- NOTE | 2020-08-21 22:33 | NUR ---
SPOKE TO DR. SHELLEY: SPOKE TO DR. SHELLEY OVER THE PHONE WHO IS PRESS PIPE INSPECTOR FOR DR. ZAVALA. NOTIFIED MD OF PATIENT REFUSAL OF MEDICATION. MD STATED TO DOCUMENT REFUSAL.
[2020-08-22] VITALS: BP_SYST 112
--- NOTE | 2020-08-22 00:45 | NUR ---
ROUNDS: PATIENT IS SLEEPING IN BED. NO ACUTE DISTRESS. RESPIRATIONS ARE EVEN, NONLABORED ON ROOM AIR. CALL LIGHT IS WITH PATIENT. SAFETY AND FALL PRECAUTIONS IN PLACE. WILL CONTINUE TO MONITOR.
--- NOTE | 2020-08-22 02:45 | NUR ---
ROUNDS: PATIENT IS SLEEPING IN BED. NO S/S ACUTE DISTRESS. BREATHING IS EVEN, NONLABORED ON ROOM AIR. CALL LIGHT IS WITH PATIENT. SAFETY AND FALL PRECAUTIONS IN PLACE. WILL CONTINUE TO MONITOR.
--- NOTE | 2020-08-22 04:15 | NUR ---
WOUND CARE: PERFORMED WOUND CARE PER MD ORDER AND WOUND CARE NURSE RECOMMENDATIONS. PATIENT TOLERATED WELL.
[2020-08-22] MEDS: LEVOTHYROXINE SODIUM 0.1 MG TABLET PO SCH (06:06)
[2020-08-22] MEDS: PANTOPRAZOLE SODIUM 40 MG TAB PO SCH (06:06)
[2020-08-22 06:19] LABS: BASOPHILS % (AUTO) 0.1 % (0.0-2.0); EOSINOPHILS % (AUTO) 0.6 % (0.0-4.0); HEMOGLOBIN 11.5 g/dL (14.0-18.0); LYMPHOCYTES # (AUTO) 3.4 K/uL (1.0-5.5); LYMPHOCYTES % (AUTO) 44.9 % (20.5-51.5); MEAN CORPUSCULAR HEMOGLOBIN 31 pg (27-31); MEAN CORPUSCULAR HGB CONC 34 % (32-36); MEAN CORPUSCULAR VOLUME 91 fL (79.0-98.0); MONOCYTES # (AUTO) 0.5 K/uL (0.0-1.0); MONOCYTES % (AUTO) 7.2 % (1.7-9.3); NEUTROPHILS # (AUTO) 3.6 K/uL (1.8-7.7); NEUTROPHILS % (AUTO) 47.2 % (40.0-70.0); PLATELET COUNT (AUTO) 125 K/uL (130-430); RED BLOOD CELL COUNT(AUTO) 3.75 MIL/uL (4.2-6.2); RED CELL DISTRIBUTION WIDTH 16.7 % (9.0-15.0); WHITE BLOOD COUNT (AUTO) 7.5 K/uL (4.8-10.8)
--- NOTE | 2020-08-22 06:48 | NUR ---
CLOSING NOTES: PATIENT IS IN BED, RESTING. NO ACUTE DISTRESS. EVEN, NONLABORED BREATHING ON ROOM AIR. IV SITE IS PATENT, INTACT, AND SALINE LOCKED. ALL NEEDS MET. BED IS LOCKED AT LOWEST POSITION. SIDE RAILS UP. BED ALARM ON. CALL LIGHT IS WITH PATIENT. CONTACT, SAFETY, AND FALL PRECAUTIONS IN PLACE. WILL ENDORSE CARE TO DAYSHIFT RN.
[2020-08-22 07:49] VITALS: BP_SYST 95
--- NOTE | 2020-08-22 07:50 | NUR ---
OPening note Received patient resting with eyes closed. Arose with verbal stimuli. Oriented times 3-4, Saline lock right A/C #20 flushes well. Patient on room air breathing even and unlabored no sign of distress. Bed in low, call light in reach side rails up for safety will continue to monitor.
[2020-08-22 08:04] LABS: ALANINE AMINOTRANSFERASE 33 U/L (12-78); ALBUMIN 2.8 g/dL (3.4-4.8); ANION GAP 11 (5-15); ASPARTATE AMINOTRANSFERASE 25 U/L (10-37); CALCIUM 7.9 mg/dL (8.4-11.0); CHLORIDE 99 mmol/L (98-107); CREATININE 4.05 mg/dL (0.55-1.30); GLUCOSE 81 mg/dL (70-99); POTASSIUM 3.2 mmol/L (3.5-5.1); SODIUM SERUM 135 mmol/L (136-145); TOTAL BILIRUBIN 0.5 mg/dL (0.0-1.0); UREA NITROGEN, BLOOD 36 mg/dL (8-21)
[2020-08-22] MEDS: DILTIAZEM HCL 60 MG TABLET PO SCH (09:00)
[2020-08-22] MEDS: APIXABAN 2.5 MG TABLET PO SCH (09:02)
[2020-08-22] MEDS: TAMSULOSIN HCL 0.4 MG CAP PO SCH (09:03)
[2020-08-22] MEDS: FAMOTIDINE 20 MG TABLET PO SCH (09:03)
[2020-08-22] MEDS: HYDROCORTISONE 10 MG TABLET (CORTEF) PO SCH (09:03)
[2020-08-22] MEDS: OXYCODONE/ACETAMINOPHEN *10*mg/325 mg TABLET PO PRN (09:04)
[2020-08-22] MEDS: SERTRALINE HCL 50 MG TABLET PO SCH (09:04)
[2020-08-22] MEDS: PEG 400/HYPROMELLOSE/GLYCERIN 15 ML DROPS EACH EYE SCH ×2 (09:09→12:40)
[2020-08-22] MEDS: LEVOFLOXACIN 500 MG/D5W 100 ML IV SCH (10:47)
--- NOTE | 2020-08-22 11:04 | NUR ---
Dr hoang in rounding for Dr Romero. Informed of situation with patient and family, that patient declined hospice. Dr Hoang stated that he will call Dr Romero to discuss situation.
[2020-08-22] MEDS ORDERED: ROCPM1 IV (11:15)
[2020-08-22 12:00] VITALS: BP_SYST 105
--- NOTE | 2020-08-22 12:14 | NUR ---
HIGH ALERT NOTE: Dr. Townsend on the floor verbal order for one time dose.
[2020-08-22] MEDS ORDERED: POTASSIUM CHLORIDE 20 MEQ TAB.PRT.SR PO ONE (12:15)
[2020-08-22 13:33] VITALS: BP_SYST 114
[2020-08-22 13:48] VITALS: BP_SYST 114
--- NOTE | 2020-08-22 14:00 | NUR ---
Called patient daughter Natalya to inform her of transfer time and place
--- NOTE | 2020-08-22 16:14 | NUR ---
D/C Patient EMT given medication reconciliation form and D/C instructions to be provided to SNF. Report given to Rosa Maria. Patient to room 49A. Exit Care provided. Patient verbalized understanding. Patient in stable condition, All belongings sent with patient.
[2020-08-22 17:17] VITALS: BP_SYST 110
== END 2020-08-22 16:15 | DRG 683 ==
LOC: SED 23:34 → STU 08-17 03:36
PROVIDERS: ADMIT Internal Medicine Hospice and Palliative Medicine; ATTEND Internal Medicine Hospice and Palliative Medicine
DX: N17.9 Acute kidney failure, unspecified (principal); L03.119 Cellulitis of unspecified part of limb; C85.10 Unspecified B-cell lymphoma, unspecified site; N39.0 Urinary tract infection, site not specified; I13.0 Hypertensive heart and chronic kidney disease with heart failure and stage 1 through stage 4 chronic kidney disease, or unspecified chronic kidney disease; E87.1 Hypo-osmolality and hyponatremia; J44.9 Chronic obstructive pulmonary disease, unspecified; I50.9 Heart failure, unspecified; R62.7 Adult failure to thrive; I48.91 Unspecified atrial fibrillation; D35.2 Benign neoplasm of pituitary gland; Z20.828 Contact with and (suspected) exposure to other viral communicable diseases; B96.89 Other specified bacterial agents as the cause of diseases classified elsewhere; N18.9 Chronic kidney disease, unspecified; E78.5 Hyperlipidemia, unspecified; F29 Unspecified psychosis not due to a substance or known physiological condition; E07.9 Disorder of thyroid, unspecified; Z87.891 Personal history of nicotine dependence; Z79.51 Long term (current) use of inhaled steroids; Z88.0 Allergy status to penicillin; Z88.7 Allergy status to serum and vaccine; Z88.1 Allergy status to other antibiotic agents; Z91.041 Radiographic dye allergy status; Z68.35 Body mass index [BMI] 35.0-35.9, adult; N18.6 End stage renal disease
CPT/HCPCS: 36415; 71045; 76770; 80053; 81000-TC; 82533; 83605; 83690-TC; 83880; 84443-TC; 84484; 85025; 85610-TC; 85730-TC; 87040-TC; 87081; 87086; 99285; G0378; J1956; J2020; J2405; J7030